=== PATIENT | female | born 1985 | race Caucasian/White ===

== ENCOUNTER 2018-03-03 12:07 | Outpatient (CLI) | payer MEDICARE, MEDICAID ==
[~2018-03-03] VITALS: Ht 167.6 cm; Wt 84.1 kg
[2018-03-03 12:20] VITALS: BP 107/66
[2018-03-03] MEDS ORDERED: IRON PO (12:55)
[2018-03-03] MEDS ORDERED: PREN1TAB60 PO (12:55)
== END 2018-03-03 13:05 ==
LOC: LDOP 12:07
PROVIDERS: ATTEND Obstetrics & Gynecology
DX: O30.003 Twin pregnancy, unspecified number of placenta and unspecified number of amniotic sacs, third trimester (principal); Z3A.34 34 weeks gestation of pregnancy
CPT/HCPCS: 59025; 99211; G0463